=== PATIENT | female | born 1990 | race Caucasian/White ===

== ENCOUNTER 2017-05-01 12:25 | Emergency (ER) | payer MEDICAID ==
--- NOTE | 2017-05-01 13:42 | C.PDOC ---
History Of Present Illness 27 y/o female, with history of bipolar disorder, bought to the ER by police because she had a dispute with her boyfriend who said she was taking too many medications. Patient reports that she took Fluoxetine in the morning. Of note, patient has good compliance with her medications. Time Seen by Provider: 05/01/17 13:22 Chief Complaint (Nursing): Psychiatric Evaluation History Per: Patient History/Exam Limitations: no limitations Onset/Duration Of Symptoms: Hrs Current Symptoms Are (Timing): Still Present Past Medical History Reviewed: Historical Data, Nursing Documentation, Vital Signs Vital Signs: Last Vital Signs Temp 98.5 F 05/01/17 15:01 Pulse 83 05/01/17 15:01 Resp 21 05/01/17 15:01 BP 113/78 05/01/17 15:01 Pulse Ox 100 05/01/17 15:01 - Medical History PMH: Bipolar Disorder Surgical History: No Surg Hx Family History: States: No Known Family Hx - Social History Hx Alcohol Use: Yes Hx Substance Use: No - Immunization History Hx Tetanus Toxoid Vaccination: No Hx Influenza Vaccination: No Hx Pneumococcal Vaccination: No Review Of Systems Except As Marked, All Systems Reviewed And Found Negative. Constitutional: Negative for: Fever, Chills Physical Exam - Physical Exam Appears: Other (very angry) Skin: Normal Color, Warm Head: Atraumatic, Normacephalic Eye(s): bilateral: Normal Inspection Nose: Normal Oral Mucosa: Moist Neck: Supple Chest: Symmetrical Cardiovascular: Rhythm Regular Respiratory: Normal Breath Sounds, No Accessory Muscle Use Neurological/Psych: Oriented x3, Normal Speech, Normal Cognition, Other ( obstreperous, argumentative but cooperative) Additional Physical Exam Comments: [place] Police at Bedside ED Course And Treatment - Laboratory Results Result Diagrams: 05/01/17 13:40 05/01/17 13:40 Lab Interpretation: Abnormal (tox + cannabanoids, cocaine, amphetamines) Urine POC: Negative ECG: Interpreted By Me ECG Rhythm: Sinus Rhythm ECG Interpretation: Normal Rate From EC O2 Sat by Pulse Oximetry: 100 (RA) Pulse Ox Interpretation: Normal Progress Note: eventually cooperative with ED staff, compliant with workup Medical Decision Making Medical Decision Making: Impression: Psychiatric Evaluation Plan: --Labs --Urinalysis --EKG pt does NOT seem to have h/o Bipolar dz and if she does is being ineffectively treated. Considering pt's ongoing polysubstance abuse- amphetamines, THC, Cocaine reccomend STOP Prozac until pt sober and effects of outpatient meds better followed. outpatient f/u reccomended by Psych Tox: No Serotonin Syndrome s/s in ED. Unlikely pt took "whole bottle" of Prozac today as the bottle is about 1 month old and pt taking meds QD as prescribed. After 5 hrs normal eval and pt remains calm arguing against overdose Disposition Doctor Will See Patient In The: Office Counseled Patient/Family Regarding: Studies Performed, Diagnosis - Disposition Disposition: HOME/ ROUTINE Disposition Time: 16:45 Condition: GOOD Forms: [facility] (Urdu) - Clinical Impression Clinical Impression: Agitation, Polysubstance abuse - Scribe Statement The provider has reviewed the documentation as recorded by the Harithaibrosette Lagunas Provider Attestation: All medical record entries made by the Scribe were at my direction and personally dictated by me. I have reviewed the chart and agree that the record accurately reflects my personal performance of the history, physical exam, medical decision making, and the department course for this patient. I have also personally directed, reviewed, and agree with the discharge instructions and disposition.
[2017-05-01 13:45] LABS: BASO # 0.1 K/uL (0.0-0.2); BASO % 0.4 % (0.0-2.0); EOS # 0.5 K/uL (0.0-0.7); EOS % 3.4 % (0.0-4.0); HEMATOCRIT 44.1 % (34.0-47.0); LYMPH # 1.4 K/uL (1.0-4.3); LYMPH % 9.4 % (20.0-40.0); MEAN CELL VOLUME 90.9 fL (81.0-99.0); MEAN CORPUSCULAR HEMOGLOBIN 30.4 pg (27.0-31.0); MEAN CORPUSCULAR HGB CONC 33.4 g/dL (33.0-37.0); MEAN PLATELET VOLUME 8.1 fL (7.2-11.7); MONO # 0.8 K/uL (0.0-0.8); MONO % 5.1 % (0.0-10.0); PLATELET COUNT 259 K/uL (130-400); RED CELL DISTRIBUTION WIDTH 13.8 % (11.5-14.5); WHITE BLOOD COUNT 14.6 K/uL (4.8-10.8)
[2017-05-01 14:06] LABS: EOSINOPHIL 3 % (0-4); NEUTROPHIL 74 % (50-75); REACTIVE LYMPHOCYTES 1 % (0-0); TOTAL CELLS COUNTED 100
[2017-05-01 14:07] LABS: RBC URINE 6 /hpf (0-3); URINE BACTERIA RARE (<OCC); URINE BILIRUBIN NEGATIVE (NEGATIVE); URINE BLOOD NEGATIVE (NEGATIVE); URINE COLOR Amber (YELLOW); URINE GLUCOSE (UA) NORMAL (Normal); URINE KETONE TRACE mg/dL (NEGATIVE); URINE LEUKOCYTE ESTERASE TRACE Leu/uL (Negative); URINE PROTEIN 2+ mg/dL (NEGATIVE); URINE UROBILINOGEN NORMAL mg/dL (0.2-1.0); WBC URINE 6 /hpf (0-5)
[2017-05-01 14:22] LABS: ALCOHOL SERUM < 10 mg/dl (0-10); ALKALINE PHOSPHATASE 54 U/L (38-126); ALT/SGPT 23 U/L (9-52); AST/SGOT 23 U/L (14-36); BILIRUBIN,TOTAL 0.9 mg/dL (0.2-1.3); BLOOD UREA NITROGEN 14 mg/dL (7-17); CALCIUM 9.1 mg/dl (8.6-10.4); CARBON DIOXIDE 24 mmol/L (22-30); CHLORIDE 103 mmol/L (98-107); GFR AFRICAN-AMERICAN > 60; GLUCOSE,RANDOM 89 mg/dL (65-105); POTASSIUM 3.4 mmol/L (3.6-5.2); SODIUM 135 mmol/L (132-148); TOTAL PROTEIN 8.4 g/dL (6.3-8.3)
[2017-05-01 14:29] LABS: ALB/GLOB RATIO 1.2 (1.0-2.1)
[2017-05-01 16:52] VITALS: BP 100/67; PULSE 86; RESP 20; TEMP 98.1; O2SAT 98
--- NOTE | 2017-05-03 13:05 | CARD ---
APPROVED REPORT EKG Measurement Heart [id number] <Conclusion> Normal sinus rhythm Normal ECG
== END 2017-05-01 16:54 | disposition home or self-care (01) ==
LOC: C.ER 12:25
DX: R45.1 Restlessness and agitation (principal); F19.10 Other psychoactive substance abuse, uncomplicated